=== PATIENT | female | born 1965 | race Hispanic/Latino ===

== ENCOUNTER 2023-01-15 16:25 | Outpatient (CLI) | payer BC | END 2023-01-15 16:26 | disposition home or self-care (01) | LOC: CSHRAD 16:25 | PROVIDERS: ATTEND Internal Medicine Hematology & Oncology | DX: Z01.818 Encounter for other preprocedural examination (principal); C79.51 Secondary malignant neoplasm of bone; C50.811 Malignant neoplasm of overlapping sites of right female breast | CPT/HCPCS: 93005; 93010 ==

== ENCOUNTER 2023-04-18 15:46 | Outpatient (CLI) | payer BC ==
[2023-04-18 17:03] LABS: Anion Gap 16 mmol/L (10-20); BUN (Urea Nitrogen) 8 mg/dL (9.8-20.1); Calc. Creatinine Clearance 0 mL/min (70-130); Calcium 9.4 mg/dL (7.8-10.44); Carbon Dioxide 23 mmol/L (22-29); Chloride 103 mmol/L (98-107); Estimated GFR 62; Glucose 144 mg/dL (70-105); Potassium 3.3 mmol/L (3.5-5.1); Sodium 139 mmol/L (136-145)
== END 2023-04-18 15:47 | disposition home or self-care (01) ==
LOC: CSHLAB 15:46
PROVIDERS: ATTEND Surgery
DX: Z01.818 Encounter for other preprocedural examination (principal); C78.7 Secondary malignant neoplasm of liver and intrahepatic bile duct
CPT/HCPCS: 80048; 93005; 93010

== ENCOUNTER 2024-11-16 14:54 | Outpatient (CLI) | payer BC | END 2024-11-16 14:55 | disposition home or self-care (01) | LOC: CSHULT 14:54 | PROVIDERS: ATTEND Internal Medicine Hematology & Oncology | DX: C79.51 Secondary malignant neoplasm of bone (principal); C50.811 Malignant neoplasm of overlapping sites of right female breast; I89.0 Lymphedema, not elsewhere classified; D70.8 Other neutropenia; I51.7 Cardiomegaly | CPT/HCPCS: 93306 ==